=== PATIENT | male | born 1945 | race Caucasian/White ===

== ENCOUNTER 2018-01-07 09:50 | Inpatient (IN) | payer OTHER, MEDICARE ==
[~2018-01-07] VITALS: Ht 170.2 cm; Wt 89.4 kg
[2018-01-07] MEDS ORDERED: GLIP10TA11 PO (10:16)
[2018-01-07] MEDS ORDERED: BUPR150T8 PO (10:16)
[2018-01-07] MEDS ORDERED: INSU100I25 SQ (10:16)
[2018-01-07] MEDS ORDERED: SERT25TA PO (10:16)
[2018-01-07] MEDS ORDERED: METF500T7 PO (10:16)
[2018-01-07 11:23] LABS: BASOPHILS % (AUTO) 0.5 % (0-1); EOSINOPHILS # (AUTO) 0.2 X10'3 (0-0.9); EOSINOPHILS % (AUTO) 2.9 % (0-6); LYMPHOCYTES # (AUTO) 1.6 X10'3 (1.1-4.8); MEAN CORPUSCULAR HEMOGLOBIN 29.9 PG (27.0-31.0); MEAN CORPUSCULAR HGB CONC 33.8 % (33.0-36.5); MEAN CORPUSCULAR VOLUME 88.5 FL (78-98); MEAN PLATELET VOLUME 8.8 FL (7.4-10.4); MONOCYTES # (AUTO) 0.7 X10'3 (0-0.9); MONOCYTES % (AUTO) 8.4 % (2-12); NEUTROPHILS # (AUTO) 5.5 X10'3 (1.8-7.7); NEUTROPHILS % (AUTO) 68.2 % (42-75); PRE OP HEMATOCRIT 43.6 % (42.0-52.0); PRE OP HEMOGLOBIN 14.8 g/dL (14.0-17.9); PRE OP PLATELET COUNT 193 X10'3 (140-440); RED BLOOD COUNT 4.93 X10'6 (4.70-6.10); RED CELL DISTRIBUTION WIDTH 13.5 % (11.5-14.5)
[2018-01-07 11:39] LABS: ALBUMIN 3.9 G/DL (3.4-5.0); ALBUMIN/GLOBULIN RATIO 1.2 (1.1-1.5); ALKALINE PHOSPHATASE 104 IU/L (46-116); BLOOD UREA NITROGEN 19 MG/DL (7-18); BUN/CREATININE RATIO 15.8 (5.4-32.0); CALCIUM 9.2 MG/DL (8.5-10.1); CHLORIDE 105 MMOL/L (99-107); PRE OP ALT 30 U/L (30-65); PRE OP ANION GAP 12 (8-16); PRE OP AST 21 U/L (10-37); PRE OP BILIRUB, TOTAL 0.5 MG/DL (0.0-1.0); PRE OP GLUCOSE 169 MG/DL (70-104); PRE OP POTASSIUM 4.6 MMOL/L (3.4-5.1); PRE OP SODIUM 141 MMOL/L (135-145); TOTAL CARBON DIOXIDE 23.6 MMOL/L (24-32); TOTAL PROTEIN 7.2 G/DL (6.4-8.2); eGFR 60 ML/MIN
[2018-01-07 11:50] LABS: HEMOGLOBIN A1C 7.7 % (4.5-6.2)
[2018-01-09] VITALS (18 sets, daily range): BP systolic 92–130; BP diastolic 57–85
[2018-01-09] MEDS ORDERED: ringers solution, lacted 1,000 ML IV SCH ×2 (05:00→09:29)
[2018-01-09] MEDS ORDERED: ceFAZolin inj. 2,000 MG in normal saline 100ml IV soln 100 ML IV ONE (05:30)
[2018-01-09] MEDS ORDERED: vancomycin inj 1,500 MG in normal saline 300ml IV soln IV ONE (05:30)
[2018-01-09] MEDS ORDERED: famotidine 20mg tablet PO ONE (05:30)
[2018-01-09] MEDS ORDERED: hydrALAZINE 20mg/ml inj. IV PRN (09:30)
[2018-01-09] MEDS ORDERED: fentaNYL/PF 50MCG/1 ML 2ML syringe IV PRN ×2 (09:30)
[2018-01-09] MEDS ORDERED: labetalol 5mg/ml 20ml inj. IV PRN (09:30)
[2018-01-09] MEDS ORDERED: morphine 4 MG/ML inj SYRINge IV PRN ×4 (09:30→14:25)
[2018-01-09] MEDS ORDERED: ondansetron/PF 4mg/2ml inj IV PRN ×2 (09:30→13:55)
[2018-01-09] MEDS ORDERED: cloNIDine hcl/PF 100mcg/ml inj ONE (09:31)
[2018-01-09] MEDS ORDERED: ROPIVAcaine 0.5% (5mg/ml) 30ml vial ONE ×2 (09:31→09:51)
[2018-01-09] MEDS ORDERED: propofol inj 20 ML IV ONE (09:35)
[2018-01-09] MEDS ORDERED: LIDOcaine 2% (20mg/ml) 5ml vial ONE (09:35)
[2018-01-09] MEDS ORDERED: vancomycin 1,000mg inj ONE (09:51)
[2018-01-09] MEDS ORDERED: ketorolac trometh. 30mg/ml inj. ONE (09:51)
[2018-01-09] MEDS ORDERED: tranexamic acid inj. 900 MG in normal saline 100ml IV soln 91 ML IV ONE ×2 (10:55→11:00)
[2018-01-09] MEDS ORDERED: dexamethasone sod phosphate 4mg/ml inj. ONE (11:20)
[2018-01-09] MEDS ORDERED: sevoflurane 250ml liquid IH ONE (11:20)
[2018-01-09] MEDS ORDERED: fentaNYL/PF 50MCG/1 ML 2ML syringe ONE (11:31)
[2018-01-09] MEDS ORDERED: midazolam 2 mg/2 ml injection ONE (11:31)
[2018-01-09] MEDS ORDERED: ePHEDrine 50MG/ML INJ. ONE (12:12)
[2018-01-09] MEDS ORDERED: phenylephrine 10mg/ml inj IV ONE (12:16)
[2018-01-09] MEDS ORDERED: ondansetron/PF 4mg/2ml inj ONE (12:28)
[2018-01-09] MEDS ORDERED: diphenhydrAMINE 25mg capsule PO PRN ×2 (13:55)
[2018-01-09] MEDS ORDERED: bisacodyl 10mg suppository rectal RC PRN (13:55)
[2018-01-09] MEDS ORDERED: acetaminophen 325mg tablet PO PRN (13:55)
[2018-01-09] MEDS ORDERED: oxyCODONE IR 5mg (immed. release) tablet PO PRN ×2 (13:55)
[2018-01-09] MEDS ORDERED: magnesium hydroxide 30ml (MOM) UD suspension PO PRN (13:55)
[2018-01-09] MEDS: potassium cl 20mEq in 1/2 NS 1,000 ML IV SCH (15:43)
[2018-01-09] MEDS: ketorolac tromethamine 15mg/ml inj. IV SCH ×2 (15:44→20:36)
[2018-01-09] MEDS: acetaminophen 325mg tablet PO SCH ×2 (15:45→20:35)
[2018-01-09] MEDS: ceFAZolin 1GM/D5W- ADD-VANTAGE 50 ML IV SCH (15:45)
[2018-01-09] MEDS ORDERED: tranexamic acid inj. 900 MG in normal saline 100ml IV soln 100 ML IV ONE (16:00)
[2018-01-09] MEDS ORDERED: vancomycin/NS 1 GM ADD-VANTAGE 250 ML IV SCH (20:00)
[2018-01-09] MEDS: gabapentin 300mg capsule PO SCH (20:35)
[2018-01-09] MEDS: buPROPion SR 150mg tablet PO SCH (20:35)
[2018-01-09] MEDS: metFORMIN 500mg tablet PO SCH (20:36)
[2018-01-09] MEDS: glipizide 5mg tablet PO SCH (20:36)
[2018-01-09] MEDS ORDERED: sennosides 8.6mg tablet PO SCH (21:00)
[2018-01-09] MEDS ORDERED: insulin glargine (Lantus) pen - multi-dose SQ SCH (21:00)
[2018-01-10] MEDS: ceFAZolin 1GM/D5W- ADD-VANTAGE 50 ML IV SCH (00:12)
[2018-01-10] MEDS: potassium cl 20mEq in 1/2 NS 1,000 ML IV SCH ×2 (00:19→05:54)
[2018-01-10 02:00] VITALS: BP 103/60
[2018-01-10] MEDS: ketorolac tromethamine 15mg/ml inj. IV SCH ×2 (03:13→08:29)
[2018-01-10] MEDS: acetaminophen 325mg tablet PO SCH ×2 (03:14→08:30)
[2018-01-10 07:37] LABS: BASOPHILS % (AUTO) 0 % (0-1); EOSINOPHILS # (AUTO) 0.2 X10'3 (0-0.9); EOSINOPHILS % (AUTO) 1.3 % (0-6); HEMOGLOBIN 11.9 g/dl (14.0-17.9); LYMPHOCYTES # (AUTO) 0.9 X10'3 (1.1-4.8); LYMPHOCYTES % (AUTO) 6.4 % (21-51); MEAN CORPUSCULAR HEMOGLOBIN 30.1 PG (27.0-31.0); MEAN CORPUSCULAR HGB CONC 33.9 % (33.0-36.5); MEAN CORPUSCULAR VOLUME 88.7 FL (78-98); MEAN PLATELET VOLUME 9.1 FL (7.4-10.4); MONOCYTES # (AUTO) 0.8 X10'3 (0-0.9); NEUTROPHILS # (AUTO) 11.7 X10'3 (1.8-7.7); NEUTROPHILS % (AUTO) 86.3 % (42-75); PLATELET COUNT 184 X10'3 (140-440); RED BLOOD COUNT 3.95 X10'6 (4.70-6.10); RED CELL DISTRIBUTION WIDTH 13.6 % (11.5-14.5); WHITE BLOOD COUNT 13.6 X10'3 (4.5-11.0)
[2018-01-10] MEDS ORDERED: sertraline 50mg tablet PO SCH (08:00)
[2018-01-10 08:14] LABS: ANION GAP 11 (8-16); CHLORIDE 106 MMOL/L (99-107); POTASSIUM 4.4 MMOL/L (3.5-5.1); SODIUM 138 MMOL/L (135-145); TOTAL CARBON DIOXIDE 20.6 MMOL/L (24-32)
[2018-01-10] MEDS: glipizide 5mg tablet PO SCH (08:29)
[2018-01-10] MEDS: gabapentin 300mg capsule PO SCH (08:30)
[2018-01-10] MEDS: buPROPion SR 150mg tablet PO SCH (08:30)
[2018-01-10] MEDS ORDERED: aspirin 325mg tablet PO SCH (08:30)
[2018-01-10] MEDS: metFORMIN 500mg tablet PO SCH (08:30)
[2018-01-10 10:07] VITALS: BP 96/52
[2018-01-10] MEDS ORDERED: celeCOXIB 100mg capsule PO SCH (20:00)
[2018-01-11] MEDS ORDERED: acetaminophen 325mg tablet PO PRN (13:55)
== END 2018-01-10 11:39 | disposition home or self-care (01) | DRG 483 ==
LOC: EDSTATUS 09:50 → PAS IN 01-09 07:57 → EDSTATUS 01-09 14:00 → ORTHO 4S 01-09 15:48
PROVIDERS: ADMIT Orthopaedic Surgery; ATTEND Orthopaedic Surgery
PROC: 0LS40ZZ Reposition Left Upper Arm Tendon, Open Approach (ICD-10-PCS; 2018-01-09)
PROC: 3E0T3BZ Introduction of Anesthetic Agent into Peripheral Nerves and Plexi, Percutaneous Approach (ICD-10-PCS; 2018-01-09)
PROC: 0RRK0JZ Replacement of Left Shoulder Joint with Synthetic Substitute, Open Approach (ICD-10-PCS; principal; 2018-01-09 11:20)
DX: M19.012 Primary osteoarthritis, left shoulder (principal); E11.9 Type 2 diabetes mellitus without complications; D62 Acute posthemorrhagic anemia; F43.10 Post-traumatic stress disorder, unspecified; G47.30 Sleep apnea, unspecified; E66.9 Obesity, unspecified; S43.122A Dislocation of left acromioclavicular joint, 100%-200% displacement, initial encounter; G89.29 Other chronic pain; M65.812 Other synovitis and tenosynovitis, left shoulder; M75.22 Bicipital tendinitis, left shoulder; X58.XXXA Exposure to other specified factors, initial encounter; Z96.611 Presence of right artificial shoulder joint; Y93.89 Activity, other specified; Y92.89 Other specified places as the place of occurrence of the external cause; Y99.8 Other external cause status; Z68.30 Body mass index [BMI] 30.0-30.9, adult; Z79.84 Long term (current) use of oral hypoglycemic drugs; Z79.899 Other long term (current) drug therapy; Z87.891 Personal history of nicotine dependence
CPT/HCPCS: 36415; 80051; 80053; 82948; 83036; 85025; 87070; 97110; 97116; 97162; A4565; A7000; C1713; C1776; J0690; J0735; J1100; J1815; J1885; J2001; J2250; J2370; J2405; J2704; J2795; J3010; J3370; J7030; J7120